=== PATIENT | female | born 1935 | race African-American/Black ===

== ENCOUNTER 2016-06-27 10:45 | Emergency (ER) | payer OTHER ==
[2016-06-27 11:01] VITALS: TEMP 97.8; BMI 42.0
--- NOTE | 2016-06-27 11:38 | PDOC ---
History of Present Illness - General Chief Complaint: Back Pain Stated Complaint: BACK PAIN Time Seen by Provider: 06/27/16 10:48 History Source: Patient Exam Limitations: No Limitations - History of Present Illness Initial Comments: 06/27/16 10:51 This is a 80-year-old female with a h/o Arthritis, HTN, HLD, COPD (home O2 dependent), CVA, DVT. PSHx of: L-knee arthroscopy, cholestectomy, partial hysterectomy. Who presents to the emergency department with left knee pain, severe back pain She was recently diagnosed with spinal stenosis She was seen by an orthopedist who referred her to pain management Pt has already been on Oxycodone was prescribed gabapentin She has taken this for 2 weeks with no relief She presents to the ER via private auto due to severe pain, difficulty walking around her home She had had no fevers or chills No falls or new trauma Was seen by PT once, and states she can not continue due to insurance issues She did not take her pain medications this morning PCP: Dr. Byron Henry --> Dr. Masoud Cabrera Recent travel: None Family History: Children: CHF Social History: Lives with children, and grandchildren Smoking: Former 25 years ago Alcohol: None Drugs: None REVIEW OF SYSTEMS GENERAL/CONSTITUTIONAL: Yes: Generalized pain No: fever, chills, weakness, loss of appetite. HEAD, EYES, EARS, NOSE AND THROAT: No: change in vision, ear pain, discharge, sore throat, throat swelling. CARDIOVASCULAR: No: chest pain, lightheadedness, palpitations, syncope RESPIRATORY: No: cough, shortness of breath, wheezing, hemoptysis, stridor. GASTROINTESTINAL: No: nausea, vomiting, diarrhea, abdominal cramping, rectal bleeding, constipation. GENITOURINARY: No: dysuria, hematuria, frequency, urgency, flank pain. MUSCULOSKELETAL: Yes: back pain, neck pain, joint pain SKIN : No: lesions, pallor, rash or easy bruising. NEUROLOGIC: No: headache, vertigo, paresthesias, weakness ENDOCRINE: No: unexplained weight gain or loss HEMATOLOGIC/LYMPHATIC: No: anemia, easy bleeding, swelling nodes. 06/27/16 11:43 GENERAL: The patient is in no acute distress, pain with even slight movement. HEAD: Normal with no signs of trauma. EYES: PERRLA, EOMI, sclera anicteric, conjunctiva clear. ENT: Ears normal, nares patent, oropharynx clear without exudates. Moist mucous membranes. NECK: Normal range of motion, supple without lymphadenopathy, JVD, or masses. LUNGS: Breath sounds equal, clear to auscultation bilaterally. No wheezes, and no crackles. HEART:Regular rate and rhythm, normal S1 and S2 without murmur, rub or gallop. ABDOMEN: Soft, nontender, normoactive bowel sounds. EXTREMITIES: Normal range of motion, (+) Left knee swelling and pain. No erythema NEUROLOGICAL: Cranial nerves II through XII grossly intact. Normal speech. No focal neurological deficits. MUSCULOSKELETAL: (+) mule tender to palpation, knee tendern, SKIN: Warm, Dry, normal turgor, no rashes or lesions noted. 06/27/16 11:44 Timing/Duration: unsure Past History - Past Medical History Allergies/Adverse Reactions: Allergies Allergy/AdvReac Type Severity Reaction Status Date / Time Sulfa (Sulfonamide Allergy Unknown DOESN'T Verified 06/27/16 11:01 Antibiotics) REMEMBER REACTION, "BUT I REMEMBER IT WAS BAD" zolpidem tartrate AdvReac Intermediate PALPITATION Verified 06/27/16 11:01 [From Marileeien] S Home Medications: Ambulatory Orders Losartan Potassium 50 mg PO DAILY 05/03/15 Roflumilast [Daliresp] 500 mcg PO DAILY 05/03/15 Simvastatin [Zocor -] 20 mg PO DAILY 05/03/15 Oxycodone HCl 10 mg PO Q6H PRN #60 tablet MDD 4 08/13/15 Warfarin Na [Coumadin] 7 mg PO DAILY #30 tablet 08/19/15 Methocarbamol [Robaxin -] 500 mg PO TID PRN #30 tablet 06/27/16 Anemia: No Asthma: Yes Cancer: No Cardiac Disorders: No CVA: Yes (TIA MANY YEARS AGO) COPD: Yes (ON HOME O2-MACHINE SET-PT UNSURE OF LITERS-USES PRN-USUALLY X 1 HOUR DAILY) CHF: No Dementia: No Diabetes: No GI Disorders: No Disorders: (GOES FREQUENTLY @ NIGHT) HTN: Yes Hypercholesterolemia: Yes Liver Disease: No Seizures: No Thyroid Disease: No - Surgical History Abdominal Surgery: Yes Appendectomy: No Cardiac Surgery: No Cholecystectomy: Yes Lung Surgery: No Neurologic Surgery: No Orthopedic Surgery: Yes (back sx-UNSURE WHAT WAS DONE) - Immunization History Immunization Up to Date: Yes - Psycho/Social/Smoking Cessation Hx Anxiety: No Suicidal Ideation: No Smoking Status: Yes Smoking History: Former smoker Have you smoked in the past 12 months: No Number of Cigarettes Smoked Daily: 0 If you are a former smoker, when did you quit?: 2005 Hx Alcohol Use: No Drug/Substance Use Hx: No Substance Use Type: None Hx Substance Use Treatment: No ED Treatment Course - LABORATORY CBC & Chemistry Diagram: 06/27/16 12:09 06/27/16 12:09 Medical Decision Making - Medical Decision Making 06/27/16 11:59 Severe pain H/o spinal stenosis Will do: basic labs, in case pt can not be discharged to home Give Dilaudid for pain Give Flexerin Will re assess 06/27/16 12:56 Upon re assessment, pt states pain is better Pt ambulatory Pt's niece wants to take her home Will discharge to home Pt to follow up with PMD and pain management *DC/Admit/Observation/Transfer Diagnosis at time of Disposition: Back pain Qualifiers: Back pain location: low back pain Chronicity: chronic Back pain laterality: unspecified Sciatica presence: with sciatica Sciatica laterality: bilateral sciatica Qualified Code(s): M54.41 - Lumbago with sciatica, right side - Discharge Dispostion Disposition: HOME Condition at time of disposition: Stable Admit: No - Prescriptions Prescriptions: Methocarbamol [Robaxin -] 500 mg PO TID PRN #30 tablet PRN Reason: Lower Back Pain - Patient Instructions Printed Discharge Instructions: DI for Low Back Pain Additional Instructions: Ms Florez Please continue your pain medications as prescribed You can add Robaxin which was sent to your pharmacy Please return to the ER if your pain is unbearable or you have any new symptoms Please follow up with your pain management physician within the next 2-3 days They should adjust your medications to improve your pain control
[2016-06-27] MEDS ORDERED: HYDROmorphone HCL CARPU-JECT 1 MG/1 ML DISP.SYRIN IVPB ONE (11:39)
[2016-06-27] MEDS ORDERED: CYCLOBENZAPRINE HCL 10 MG TABLET (FP) PO ONE (11:39)
[2016-06-27] MEDS ORDERED: DOCUSATE SODIUM 100 MG CAPSULE (FP) PO ONE (11:39)
[2016-06-27] MEDS ORDERED: HYDROmorphone HCL CARPU-JECT 2 MG/1 ML DISP.SYRIN ONE (11:45)
[2016-06-27] MEDS ORDERED: CYCLOBENZAPRINE HCL 10 MG TABLET (FP) ONE (11:46)
[2016-06-27 12:33] LABS: BASOPHIL 3.3 % (0-2.0); EOSINOPHIL 1.4 % (0-4.5); MEAN CELL VOLUME 87.6 fl (80-96); MEAN PLT VOLUME 7.5 fl (7.5-11.1); NEUTROPHILS 52.7 % (42.8-82.8); PLATELET COUNT 301 K/MM3 (134-434); RDW 14.3 % (11.6-15.6); WHITE BLOOD COUNT 8.2 K/mm3 (4.0-10.8)
[2016-06-27 12:48] VITALS: BP 179/75; PULSE 70
== END 2016-06-27 13:32 | disposition home or self-care (01) ==
LOC: FER 10:45
PROC: 3E033NZ Introduction of Analgesics, Hypnotics, Sedatives into Peripheral Vein, Percutaneous Approach (ICD-10-PCS; principal; 2016-06-27)
DX: M54.41 Lumbago with sciatica, right side (principal); M48.00 Spinal stenosis, site unspecified; Z87.891 Personal history of nicotine dependence; J45.909 Unspecified asthma, uncomplicated; Z86.73 Personal history of transient ischemic attack (TIA), and cerebral infarction without residual deficits; I10 Essential (primary) hypertension; J44.9 Chronic obstructive pulmonary disease, unspecified; Z99.81 Dependence on supplemental oxygen
CPT/HCPCS: 36415; 85025; 99283-25

== ENCOUNTER 2016-08-11 20:01 | Emergency (ER) | payer OTHER ==
[2016-08-11 20:05] VITALS: BP 191/103; PULSE 102; TEMP 98.2; BMI 38.2
[2016-08-11] MEDS ORDERED: IBUPROFEN 400 MG TABLET (FP) PO ONE ×2 (20:20→20:21)
[2016-08-11] MEDS ORDERED: diazePAM 5 MG TABLET PO ONE (20:21)
[2016-08-11] MEDS ORDERED: diazePAM 5 MG TABLET ONE (20:21)
--- NOTE | 2016-08-11 20:38 | PDOC ---
History of Present Illness - General History Source: Patient Exam Limitations: No Limitations - History of Present Illness Initial Comments: 08/11/16 20:40 The patient is a 80 year old female, with a significant past medical history of HTN, HLD, COPD, CVA, DVT, spinal stenosis, who presents to the emergency department with neck pain that radiates down her back since yesterday. The patient ranks her pain a 10/10 in pain intensity. She reports being unable to turn her neck secondary to pain. She denies any injury or trauma to her neck. She denies any numbness and tingling in her UEs. She denies recent fevers, chills, headache or dizziness. She denies recent nausea, vomit, diarrhea or constipation. She denies recent dysuria, frequency, urgency or hematuria. She denies recent chest pain or shortness of breath. Allergies: See Nursing Notes. Past surgical history: knee scope, cholecystectomy, partial hysterectomy , Social history: Nonsmoker. Denies EtOH use and recreational drug use. <Mauri Rodriguez - Last Filed: 08/11/16 20:40> <Gelacio Swain - Last Filed: 08/12/16 03:41> - General Chief Complaint: Pain Stated Complaint: NECK PAIN Time Seen by Provider: 08/11/16 20:20 Past History <Mauri Rodriguez - Last Filed: 08/11/16 20:40> - Past Medical History Anemia: No Asthma: Yes Cancer: No Cardiac Disorders: No CVA: Yes (TIA MANY YEARS AGO) COPD: Yes (ON HOME O2-MACHINE SET-PT UNSURE OF LITERS-USES PRN-USUALLY X 1 HOUR DAILY) CHF: No Dementia: No Diabetes: No GI Disorders: No Disorders: (GOES FREQUENTLY @ NIGHT) HTN: Yes Hypercholesterolemia: Yes Liver Disease: No Seizures: No Thyroid Disease: No Other medical history: SPINAL STENOSIS - Surgical History Abdominal Surgery: Yes Appendectomy: No Cardiac Surgery: No Cholecystectomy: Yes Lung Surgery: No Neurologic Surgery: No Orthopedic Surgery: Yes (back sx-UNSURE WHAT WAS DONE) - Immunization History Immunization Up to Date: Yes - Psycho/Social/Smoking Cessation Hx Anxiety: No Suicidal Ideation: No Smoking Status: Yes Smoking History: Former smoker Have you smoked in the past 12 months: No Number of Cigarettes Smoked Daily: 0 If you are a former smoker, when did you quit?: 2006 Information on smoking cessation initiated: No Hx Alcohol Use: No Drug/Substance Use Hx: No Substance Use Type: None Hx Substance Use Treatment: No <Gelacio Swain - Last Filed: 08/12/16 03:41> - Past Medical History Allergies/Adverse Reactions: Allergies Allergy/AdvReac Type Severity Reaction Status Date / Time Sulfa (Sulfonamide Allergy Unknown DOESN'T Verified 06/27/16 11:01 Antibiotics) REMEMBER REACTION, "BUT I REMEMBER IT WAS BAD" zolpidem tartrate AdvReac Intermediate PALPITATION Verified 06/27/16 11:01 [From Juan Pablo] S Home Medications: Ambulatory Orders Losartan Potassium 50 mg PO DAILY 05/03/15 Roflumilast [Daliresp] 500 mcg PO DAILY 05/03/15 Simvastatin [Zocor -] 20 mg PO DAILY 05/03/15 Oxycodone HCl 10 mg PO Q6H PRN #60 tablet MDD 4 08/13/15 Warfarin Na [Coumadin] 7 mg PO DAILY #30 tablet 08/19/15 Methocarbamol [Robaxin -] 500 mg PO TID PRN #30 tablet 06/27/16 Diazepam [Valium] 5 mg PO Q12H PRN #8 tablet MDD 10mg 08/11/16 Ibuprofen [Motrin -] 400 mg PO BID PRN #10 tablet 08/11/16 Review of Systems - Review of Systems Able to Perform ROS?: Yes Comments:: 08/11/16 20:40 GENERAL/CONSTITUTIONAL: No: fever, chills, weakness, loss of appetite. HEAD, EYES, EARS, NOSE AND THROAT: No: change in vision, ear pain, discharge, sore throat, throat swelling. CARDIOVASCULAR: No: chest pain, lightheadedness, palpitations, syncope RESPIRATORY: No: cough, shortness of breath, wheezing, hemoptysis, stridor. GASTROINTESTINAL: No: nausea, vomiting, diarrhea, abdominal cramping, rectal bleeding, constipation. GENITOURINARY: No: dysuria, hematuria, frequency, urgency, flank pain. MUSCULOSKELETAL: +neck pain No: back pain, joint pain, muscle swelling or pain SKIN : No: lesions, pallor, rash or easy bruising. NEUROLOGIC: No: headache, vertigo, paresthesias, weakness ENDOCRINE: No: unexplained weight gain or loss HEMATOLOGIC/LYMPHATIC: No: anemia, easy bleeding, swelling nodes. <Mauri Rodriguez - Last Filed: 08/11/16 20:40> *Physical Exam - Vital Signs Last Vital Signs Temp Pulse Resp BP Pulse Ox 98.2 F 102 H 20 191/103 97 08/11/16 20:02 08/11/16 20:02 08/11/16 20:02 08/11/16 20:02 08/11/16 20:02 - Physical Exam Comments: 08/11/16 20:40 GENERAL: The patient is in moderate distress. HEAD: Normal with no signs of trauma. EYES: PERRLA, EOMI, sclera anicteric, conjunctiva clear. ENT: Ears normal, nares patent, oropharynx clear without exudates. Moist mucous membranes. NECK: Normal range of motion, supple without lymphadenopathy, JVD, or masses. LUNGS: Breath sounds equal, clear to auscultation bilaterally. No wheezes, and no crackles. HEART: Regular rate and rhythm, normal S1 and S2 without murmur, rub or gallop. ABDOMEN: Soft, nontender, normoactive bowel sounds. No guarding, no rebound. No masses palpable. EXTREMITIES: Normal range of motion, no edema. No clubbing or cyanosis. No erythema, or tenderness. NEUROLOGICAL: Cranial nerves II through XII grossly intact. Normal speech. No focal neurological deficits. MUSCULOSKELETAL: Tender left trapezius muscle. SKIN: Warm, Dry, normal turgor, no rashes or lesions noted. <Mauri Rodriguez - Last Filed: 08/11/16 20:40> - Vital Signs Last Vital Signs Temp Pulse Resp BP Pulse Ox 98.2 F 102 H 20 191/103 97 08/11/16 20:02 08/11/16 20:02 08/11/16 20:02 08/11/16 20:02 08/11/16 20:02 <Gelacio Swain - Last Filed: 08/12/16 03:41> ED Treatment Course - Medications Given in the ED: ED Medications Discontinued Medications Generic Name Dose Route Start Last Admin Trade Name Freq PRN Reason Stop Dose Admin Diazepam 10 mg 08/11/16 20:21 08/11/16 20:24 Valium - PO 08/11/16 20:22 10 mg ONCE ONE Administration Ibuprofen 400 mg 08/11/16 20:20 08/11/16 20:22 Motrin - PO 08/11/16 20:21 400 mg ONCE ONE Administration <Mauri Rodriguez - Last Filed: 08/11/16 20:40> Medical Decision Making - Medical Decision Making 08/12/16 03:41 torticollis improved after ED mgmt dc in 's company <Gelacio Swain - Last Filed: 08/12/16 03:41> *DC/Admit/Observation/Transfer - Attestations Scribe Attestion: 08/11/16 20:40 Documentation prepared by Mauri Rodriguez, acting as center medical director for Gelacio Swain MD. <Mauri Rodriguez - Last Filed: 08/11/16 20:40> <Gelacio Swain - Last Filed: 08/12/16 03:41> Diagnosis at time of Disposition: Torticollis, acute - Discharge Dispostion Disposition: HOME Condition at time of disposition: Stable - Prescriptions Prescriptions: Ibuprofen [Motrin -] 400 mg PO BID PRN #10 tablet PRN Reason: neck spasm Diazepam [Valium] 5 mg PO Q12H PRN #8 tablet MDD 10mg PRN Reason: neck spasm - Referrals Referrals: Byron Henry MD [Primary Care Provider] - - Patient Instructions Printed Discharge Instructions: DI for Torticollis
== END 2016-08-11 21:10 | disposition home or self-care (01) ==
LOC: FER 20:01
DX: M43.6 Torticollis (principal); J45.909 Unspecified asthma, uncomplicated; Z86.73 Personal history of transient ischemic attack (TIA), and cerebral infarction without residual deficits; I10 Essential (primary) hypertension; E78.00 Pure hypercholesterolemia, unspecified; M48.02 Spinal stenosis, cervical region; Z87.891 Personal history of nicotine dependence
CPT/HCPCS: 99282-25